=== PATIENT | female | born 1955 | race Caucasian/White ===

== ENCOUNTER 2018-03-03 12:21 | Emergency (ER) | payer SELFPAY ==
[2018-03-03 12:24] VITALS: BP 145/67; PULSE 87; RESP 20; TEMP 36.7; O2SAT 93
[2018-03-03 12:29] VITALS: RESP 20
--- NOTE | 2018-03-03 12:35 | DI.RAD_ITS ---
SYMPTOMS/DIAGNOSIS: COUGH, FEVER PA AND LATERAL CHEST: Comparison x-ray 02/19/09. The heart size and pulmonary vasculature are within normal limits. The lungs are clear and well expanded. No effusions or pneumothoraces are identified. There is an ovoid density projected over the anterolateral aspect of the right fifth rib. This can be seen on the x-ray of the shoulder from 02/19/09 and appears to be associated with the rib. Degenerative changes are seen in the spine. IMPRESSION: No acute pulmonary process.
[2018-03-03] MEDS: Albuterol HFA 8 GM 60 PUFF INH IH (13:41)
[2018-03-03] MEDS: Doxycycline Hyclate 100 MG CAP PO (13:41)
[2018-03-03] MEDS: Inhaler, Assist Device 1 EACH MC (13:42)
--- NOTE | 2018-03-03 13:42 | ED.GENADUL_ITS ---
Discharge Plan Disposition Patient Disposition: HOME Condition: Stable Discharge Details Chief Complaint: SOB Clinical Impression: Pneumonia Primary Care Provider: Eh Le ED Provider: Chris Flores Home Meds and New Rx's Prescriptions: New doxycycline hyclate 100 mg capsule 100 mg PO BID Qty: 14 RF: 0 benzonatate 200 mg capsule 200 mg PO TID PRN (Reason: cough) Qty: 30 RF: 0 Continued ibuprofen [Advil] 200 mg Tablet 400 mg PO QID PRNRF: 0 Mucinex DM 30-600 mg Tablet Extended Release 12 Hr 1 tab PO Q12H PRNRF: 0 Discharge Instructions Instructions: Pneumonia (ED) Additional Instructions: Return immediately to the emergency department new or worsening signs or symptoms, including high fevers, worsening shortness of breath, or any difficulty breathing. Otherwise take antibiotics until fully completed. You may use the provided inhaler 1-2 puffs every 4 hours as needed for shortness of breath. Follow-up with your primary care provider for reassessment if not improving over the next week. Referrals: Eh Le MD [Primary Care Provider] - 1 week (If not improving over the next week please follow-up with primary care provider for reassessment) Discharge Data Discharge Date/Time-TO BE ENTERED AT DEPARTURE: 03/03/18 13:48 Medical Decision Making Patient presenting the emergency department for chief complaint of worsening cold-like symptoms. Patient states that she had fever chills nasal congestion cough started 1 week ago and that seemed to improve after 3 days but over the last 24 hours she has had significant worsening of cough, change of sputum, and development of shortness of breath. Chest x-ray was ordered and was read by radiologist as negative, I question of possible right lower lobe infiltrate or opacity that is very slight or subtle. On physical exam patient does have diminished right lower lung field sounds and some mild crackles in the same area. Physical exam is otherwise unremarkable showing no tachycardia, afebrile, not hypotensive, mild low O2 sat but no tachypnea patient has no other significant comorbidities so I feel that outpatient therapy is appropriate and patient placed on doxycycline twice daily for 1 week, prescribed Tessalon Perles and albuterol inhaler to see if this helps her symptoms. Patient states clear understanding to return for new or worsening symptoms otherwise to follow-up with primary care for reassessment. After discussion of diagnosis and plan of care patient has no further needs, questions, or concerns and states clear understanding to return to the emergency department for any worsening symptoms. HPI General Mode of arrival: ambulatory . Date/Time Provider Initiated Documentation: 03/03/18 12:35 . Limitations to Documentation: no limitations . Information obtained by: patient and RN notes reviewed . History of Present Illness 62 year old F presents to the emergency department with the chief complaint of Worsening cold symptoms, Quality is described as other (Denies pain or discomfort), Patient started experiencing this week(s) (1) and it has been constant (With worsening over the past 24 hours). No relieving factors improve symptom(s), No exacerbating factors reported . Patient did receive the following treatments prior to arrival, other (Tylenol) Related Data Home Medications Medication Instructions Recorded Confirmed Mucinex DM 1 tab PO Q12H PRN 03/03/18 03/03/18 benzonatate 200 mg PO TID PRN #30 cap 03/03/18 doxycycline hyclate 100 mg PO BID #14 cap 03/03/18 ibuprofen [Advil] 400 mg PO QID PRN 03/03/18 03/03/18 Previous Rx's Medication Instructions Recorded benzonatate 200 mg PO TID PRN #30 cap 03/03/18 doxycycline hyclate 100 mg PO BID #14 cap 03/03/18 Allergies Allergy/AdvReac Type Severity Reaction Status Date / Time sulfamethoxazole Allergy Unknown rash Unverified 03/03/18 12:28 [From Bactrim] trimethoprim [From Bactrim] Allergy Unknown rash Unverified 03/03/18 12:28 General Stated Complaint: SOB AIYANA: 3 Review of Systems Constitutional Reports chills, Reports difficulty sleeping (Due to coughing), Reports fatigue, Reports fever(s) and Reports malaise ENT Reports as per HPI, Denies hoarseness, Reports nasal congestion, Denies sinus pressure and Denies sore throat Cardiovascular Denies chest pain, Reports dyspnea and Reports dyspnea on exertion Respiratory Reports as per HPI, Reports chest congestion, Denies hemoptysis, Reports excessive phlegm production, Denies pain with cough, Reports dyspnea, Reports dyspnea on exertion, Denies stridor and Reports wheezing Gastrointestinal Denies abdominal pain, Denies diarrhea, Denies nausea and Denies vomiting Musculoskeletal Denies joint swelling Integumentary/Breasts Denies rash Endocrine Reports fatigue Allergic/Immunologic Reports wheezing PFSH Social History Smoking/Tobacco Use Status: Former Tobacco Use Exam Const General: cooperative, comfortable and no acute distress Orientation: alert, awake and oriented x3 HENMT Head: normal to inspection Ears: hearing grossly normal bilaterally, external ears normal and TM's normal bilaterally General nose exam: external nose normal and nares normal Mouth: oral mucosae normal Throat: posterior oropharynx normal, tonsils normal and uvula midline Eyes General: appearance normal, both eyes and all related structures Conjunctivae: conjunctivae normal Sclera: sclerae normal Neck Neck: normal visual inspection, full ROM, no lymphadenopathy, meningismus present and no JVD Resp Effort & Inspection: normal respiratory effort, able to speak in complete sentences, no audible wheezes and not labored Auscultation: crackles on the right at the base and diminished lung sounds on the right in the lower lung sarabia Cardio Rate: regular rate Rhythm: regular rhythm Heart Sounds: S1 normal and S2 normal Skin General skin exam: dry skin Neuro General: alert, awake, oriented x3 and gait normal Course Vital Signs Temperature 36.7 C 03/03/18 12:24 Pulse 87 03/03/18 12:24 Respiratory Rate 20 03/03/18 12:24 Blood Pressure 145/67 H 03/03/18 12:24 Pulse Oximetry 93 L 03/03/18 12:24 Temperature 36.7 C 03/03/18 12:24 Temperature Source Temporal Artery Scan 03/03/18 12:24 Pulse 87 03/03/18 12:24 Respiratory Rate 20 03/03/18 12:29 Respiratory Effort 03/03/18 12:29 Respiratory Depth Normal 03/03/18 12:29 Respiratory Pattern Normal 03/03/18 12:29 Blood Pressure 145/67 H 03/03/18 12:24 Blood Pressure Position Sitting 03/03/18 12:24 Pulse Oximetry 93 L 03/03/18 12:24 Oxygen Delivery Method Room Air 03/03/18 12:24 Oxygen Flow Rate 0 03/03/18 12:24 Pain Level 0 03/03/18 12:24
--- NOTE | 2018-03-03 13:43 | NUR.NOTE ---
patient medicated per provider order Nursing Note:
[2018-03-03 13:45] VITALS: TEMP 36.4
== END 2018-03-03 13:48 | disposition home or self-care (01) ==
PROVIDERS: Emergency Provider Nurse Practitioner Family; PCP Family Medicine
DX: J18.9 Pneumonia, unspecified organism (principal); Z87.891 Personal history of nicotine dependence
CPT/HCPCS: 99283; 71046

== ENCOUNTER 2019-08-08 21:10 | Outpatient (REF) | payer MEDICAID, SELFPAY ==
[2019-08-08 19:36] LABS: Abs Immature Grans 0.01 k/cumm (0.0-0.09); Absolute Basophil Count 0.05 k/cumm (0.0-0.2); Absolute Eosinophil Count 0.09 k/cumm (0.0-0.7); Absolute Lymphocyte Count 1.28 k/cumm (1.2-3.4); Absolute Monocyte Count 0.39 k/cumm (0.11-0.7); Absolute Neutrophil Count 3.61 k/cumm (1.2-6.7); Basophils % 0.9; Eosinophils % 1.7; HCT 40.4 % (36.0-46.0); HGB 13.6 g/dL (12.0-15.5); Immature Grans % 0.2 %; Lymphocytes % 23.6; Mean Corp. HGB Concentration 33.7 g/dL (32.0-36.0); Mean Corpuscular Hemoglobin 31.3 pg (27.0-33.0); Mean Corpuscular Volume 92.9 fL (80-95); Mean Platelet Volume 11.3 fL (8.0-11.0); Monocytes % 7.2; Neutrophils % 66.4; Platelet Count 196 x1000/uL (130-400); RBC 4.35 m/cumm (4.00-5.20); RBC Distribution Width 12.6 % (11.7-14.6); White Blood Cell Count 5.43 k/cumm (4.4-10.8)
[2019-08-08 19:56] LABS: ALT 40 U/L (14-59); AST 25 U/L (15-37); Albumin 4.3 g/dL (3.4-5.0); Alkaline Phosphatase 68 U/L (46-116); Anion Gap 9.5 mmol/L (3-11); BUN 13 mg/dL (7-18); Bilirubin, Total 0.5 mg/dL (0.2-1.0); CO2 26.5 mmol/L (21.0-32.0); CREATININE 0.74 mg/dL (0.55-1.02); Calcium 9.2 mg/dL (8.5-10.1); Calculated LDL 156 mg/dL (<100); Chloride 104 mmol/L (98-107); Cholesterol 225 mg/dL (<200); Glucose 96 mg/dL (74-106); HDL Cholesterol 41 mg/dL (40-60); Potassium 3.9 mmol/L (3.5-5.1); Sodium 140 mmol/L (136-145); Total Protein 7.3 g/dL (6.4-8.2); Triglyceride 142 mg/dL (<150)
[2019-08-09 04:17] LABS: Vitamin D 25 Total 21.3 ng/ml (30-100)
[2019-08-10 09:49] LABS: CA 19-9 4 U/mL (<35)
== END 2019-08-08 21:30 ==
LOC: NCHCN 21:10
PROVIDERS: PCP Physician Assistant; Visit Provider Physician Assistant
DX: Z80.1 Family history of malignant neoplasm of trachea, bronchus and lung (principal); Z80.0 Family history of malignant neoplasm of digestive organs; E78.5 Hyperlipidemia, unspecified; E55.9 Vitamin D deficiency, unspecified
CPT/HCPCS: 80053; 80061; 82306; 84443; 85025; 86301

== ENCOUNTER 2019-10-18 08:08 | Day surgery (SDC) | payer MEDICAID, SELFPAY ==
[2019-10-18 08:15] VITALS: BP 141/78; PULSE 72; RESP 18; TEMP 36.5; O2SAT 95
[2019-10-18] MEDS: Lactated Ringers 1,000 ML 80 ML IV (08:38)
--- NOTE | 2019-10-18 09:15 | W.COLOREPORT ---
Date of service: 10/18/19 Time of Service: 09:15 Colonoscopy Report Procedure Description: After informed consent was obtained the patient was taken to the procedure room and placed in a left decubitous position. Monitors were applied and a time out was done. The patients name, date of , procedure, allergies to medications and metal in their body was reviewed. The patient was then sedated. Once sedated and comfortable a rectal exam was done. External exam was normal. Internal exam revealed a normal sphincter tone and no palpable masses. The scope was then introduced and retroflexed. internal hemorrhoids were identified. Her colon is extremely tortuous and redundant. I am able to get to the right/hepatic flexure but cannot advance the scope beyond this. The muscle seen is pink and healthy. There are no polyps. I worked on trying to advance the scope for about 25 mins. She has had a CANDY/BSO. I do not palpate any hernias. The prep was good. The scope was then slowly retracted over 15 minutes back into the rectum. The scope was removed and the patient was woken up and taken back to Same day surgery in stable condition. She will got for a CE for completeness, juice given her extensive family hx. The patient tolerated the procedure well and there were no immediate complications. Follow up: The patient should follow up in 5 years unless they develop changes in bowel habits or other new gastrointestinal complaints. pt has extensive family hx of cancer- CRC/liver/pancrease and should go for genetic testing. no family hx of breast/ovarian/uterine.
--- NOTE | 2019-10-18 09:15 | W.PM.DSUDISC ---
Discharge Plan Disposition Patient Disposition: HOME Condition: Good Discharge Details Reason For Visit: colon scope Attending Provider: Chica Yao Primary Care Provider: Kellee Gu Home Meds and New Rx's Prescriptions: No Action polyethylene glycol 3350 17 gram/dose powder 238 g PO ONCE Qty: 238 RF: 0 bisacodyl [Dulcolax (bisacodyl)] 5 mg tablet,delayed release (DR/EC) 5 mg PO ONCE Qty: 4 RF: 0 cholecalciferol (vitamin D3) 50 mcg (2,000 unit) capsule 50 mcg PO DAILY RF: 0 ibuprofen [Advil] 200 mg Tablet 400 mg PO QID PRNRF: 0 multivitamin Tablet 1 tab PO DAILY RF: 0 Discharge Instructions Additional Instructions: Findings:torteous colon. Diverticula will need BE in 2 wks time Follow up: 5 yrs Please call if you develop: fevers >101.5 Nausea or Vomiting Abdominal pain that is not transient DAY SURGERY UNIT POST COLONOSCOPY INSTRUCTIONS 1. Because there will be medication in your system for the next 24 hours, you may feel a little sleepy. Your coordination will be affected. Therefore: a. Do not drive or operate dangerous equipment for 24 hours. b. Do not drink alcohol beverages for 24 hours (not even beer). c. Plan to go home and rest for the day. 2. Generally there are no restrictions on your activity after a day or so has gone by, but you may feel a bit fatigued for a few days. 3 After you arrive home you may have a light meal and return to a normal diet as you can tolerate it without feeling sick to your stomach. 4. After surgery, you may feel pain or discomfort. This should be only transient, but if it persists please contact your doctor. 5. If there are any questions regarding the findings of your procedure, please feel free to contact your doctor. 6. If you are unable to contact your doctor with a problem, contact the hospital at [phone]. 7. Continue all your regular medications unless directed otherwise. I understand the above instructions and have no questions. Signature of Patient or Responsible Adult Escort Date/Time Name of Responsible Adult Escort Signature of Nurse Date/Time Activity:: no strenuous activity or lifting over 20#'s x 24 hrs Diet:: small light meals x 24 hrs Discharge Orders Discharge Orders: Discharge Order (Routine); Ordered 10/18/19 Ordered By: Chica Yao DS: Diagnosis Discharge Diagnosis (1) Family history of malignant neoplasm of colon in first degree relative diagnosed when younger than 60 years of age: Status: Acute (2) Diverticula of colon: Status: Acute
[2019-10-18 10:45] VITALS: BP 117/60; PULSE 63; RESP 16; TEMP 36.4; O2SAT 98
== END 2019-10-18 11:45 | disposition home or self-care (01) ==
PROVIDERS: PCP Physician Assistant; Visit Provider Surgery
PROC: 0DJD8ZZ Inspection of Lower Intestinal Tract, Via Natural or Artificial Opening Endoscopic (ICD-10-PCS; CPT 45378; principal; 2019-10-18 09:00)
DX: Z12.11 Encounter for screening for malignant neoplasm of colon (principal); Z80.0 Family history of malignant neoplasm of digestive organs; K57.30 Diverticulosis of large intestine without perforation or abscess without bleeding
CPT/HCPCS: 45378

== ENCOUNTER 2019-10-23 01:12 | Outpatient (CLI) | payer MEDICAID, SELFPAY ==
--- NOTE | 2019-10-23 | DI.RAD_ITS ---
EXAM: XR CHEST 2V PA LATERAL CLINICAL HISTORY: FORMER SMOKER, Z87.891,SOB, R06.02 TECHNIQUE: 2D digital imaging was performed. COMPARISON: No exams were available for comparison FINDINGS: MEDIASTINUM: Normal. HEART: Normal. PULMONARY VASCULATURE: Normal. LUNGS: Mild upper lobe emphysematous changes. No visible mass or infiltrate. PLEURAL SPACE: No pleural effusion or pneumothorax. BONE:Normal. OTHER FINDINGS:Right upper quadrant surgical clips. IMPRESSION: No acute pulmonary findings. DATA REPOSITORY: RADIATION DOSE DELIVERED:
== END 2019-10-23 01:32 ==
PROVIDERS: PCP Physician Assistant; Visit Provider Physician Assistant
DX: Z87.891 Personal history of nicotine dependence (principal); R06.02 Shortness of breath
CPT/HCPCS: 71046

== ENCOUNTER 2019-10-29 00:51 | Outpatient (CLI) | payer MEDICAID, SELFPAY ==
--- NOTE | 2019-10-29 | DI.MAMMO_ITS ---
EXAM: MG MAMMO SCREENING CLINICAL HISTORY: SCREENING,Z12.31 TECHNIQUE: Mammograms were interpreted according to the usual protocol including computer analysis w [employer] CAD system, tomosynthesis and C-view imaging. COMPARISON: FINDINGS: Breasts are heterogeneously dense. Microcalcification is identified in either breast. The current e xamination is compared with previous examination September 2013 and there has been no gross interval darwin nge appearance comparison with prior study. IMPRESSION: No specific evidence of malignancy at this time. Routine screening examinations are suggested at yea rly intervals in this age group according to the ACS ACR guidelines. BI-RADS Category 1 - Negative Breast Density - Category C - Heterogeneously dense
== END 2019-10-29 01:11 ==
PROVIDERS: PCP Physician Assistant; Visit Provider Physician Assistant
DX: Z12.31 Encounter for screening mammogram for malignant neoplasm of breast (principal); R92.2 Inconclusive mammogram; R92.0 Mammographic microcalcification found on diagnostic imaging of breast
CPT/HCPCS: 77063; 77067

== ENCOUNTER 2019-12-10 00:54 | Outpatient (CLI) | payer MEDICAID, SELFPAY ==
--- NOTE | 2019-12-10 07:02 | DI.RAD_ITS ---
EXAM: RF BARIUM ENEMA CLINICAL HISTORY: INCOMPLETE COLONOSCOPY,DIVERTICULA,FAMILY H/O COLON CA,K57.30 TECHNIQUE: COMPARISON: No exams were available for comparison FINDINGS: Barium enema was performed according to the usual protocol. Preliminary radiograph of the abdomen is unremarkable. There is moderate colonic diverticulosis. Appendix fills and appears normal. The te rminal ileum is unremarkable in appearance. There is no focal intraluminal filling defect identified . Colonic mucosa appears intact throughout. No evidence of stricture. IMPRESSION: Negative barium enema except for moderate colonic diverticulosis. RADIATION DOSE DELIVERED: Total DLP
[2019-12-10] MEDS: Barium Sulfate 60% W/V 355 ML BTL PO (10:01)
== END 2019-12-10 01:14 ==
PROVIDERS: PCP Physician Assistant; Visit Provider Surgery
DX: Z80.0 Family history of malignant neoplasm of digestive organs (principal); K57.30 Diverticulosis of large intestine without perforation or abscess without bleeding
CPT/HCPCS: 74270

== ENCOUNTER 2020-11-18 04:34 | Outpatient (CLI) | payer MEDICAID, SELFPAY ==
[2020-11-18] MEDS: Inhaler, Assist Device 1 EACH MC (17:02)
[2020-11-18] MEDS: Albuterol HFA 18 GM 200 PUFF INH IH (17:02)
--- NOTE | 2020-11-19 15:02 | W.PFT ---
Date of service: 11/18/20 Time of Service: 15:04 Pulmonary Function Test Result Requesting Provider Shirley Gu Indications: Shortness of breath Interpretation Spirometry: There is moderate airflow obstruction. There is no significant bronchodilator change. Airflow limitation is suggested by the flow volume loop and volume-time curves. Lung Volumes: There is evidence of hyperinflation and air trapping. Diffusion Capacity: The diffusion is not reduced. Airway Pressure: Airways resistance is normal. Impression Moderate airflow limitation with hyperinflation and air trapping. In the correct clinical context this could represent COPD with chronic bronchitis given the patient's smoking history. Clinical Correlation therefore is recommended.
== END 2020-11-18 04:35 | disposition home or self-care (01) ==
LOC: RT 04:34
PROVIDERS: PCP Physician Assistant; Visit Provider Physician Assistant
DX: R06.02 Shortness of breath (principal); R94.2 Abnormal results of pulmonary function studies
CPT/HCPCS: 94060; 94726; 94729

== ENCOUNTER 2020-12-31 13:12 | Outpatient (REF) | payer MEDICAID, SELFPAY ==
[2020-12-31 21:50] LABS: Hemoglobin A1C 5.5 % (<5.7)
[2020-12-31 21:52] LABS: TSH (W/Ref FT4) 2.02 uIU/mL (0.36-3.74)
[2021-01-01 17:10] LABS: CRP, High Sensitivity 3.38 mg/L (See Note)
== END 2020-12-31 13:13 | disposition home or self-care (01) ==
LOC: NCHCN 13:12
PROVIDERS: PCP Physician Assistant; Visit Provider Physician Assistant
DX: R73.9 Hyperglycemia, unspecified (principal); R79.82 Elevated C-reactive protein (CRP); R94.6 Abnormal results of thyroid function studies
CPT/HCPCS: 86141; 83036; 84443

== ENCOUNTER → 2021-11-05 03:16 | Outpatient (CLI) | payer MEDICAID, SELFPAY ==
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
--- NOTE | 2021-11-05 15:00 | DI.MAMMO_ITS ---
Exam(s) MAMMO SCREENING EXAM: MAMMO SCREENING CLINICAL HISTORY: SCREENING, Z12.31 TECHNIQUE: Mammograms were interpreted according to the usual protocol including computer analysis w [employer] CAD system, tomosynthesis and C-view imaging. COMPARISON: 2013 and 2019 FINDINGS: The breasts are composed of scattered fibroglandular densities, Breast Density category B. No suspicious masses or suspicious microcalcifications are seen. No skin thickening or abnormal axillary lymph nodes are seen. There has been no significant change from prior exams. IMPRESSION: BI-RADS Category 1, Negative mammogram Yearly screening mammography is recommended. Breast Density - Category B, scattered fibroglandular densities. A negative radiographic report should not delay biopsy if a dominant or clinically suspicious mass is present. Up to ten percent of cancers are not identified on mammography. A negative report may reinforce clinical impression. Adenosis and dense breasts may obscure an underlying neoplasm. False positive reports average 6 to 10%. Patient will receive a letter notifying them of these results.
== END ==
PROVIDERS: PCP Physician Assistant; Visit Provider Physician Assistant
DX: Z13.820 Encounter for screening for osteoporosis (principal); Z78.0 Asymptomatic menopausal state; Z12.31 Encounter for screening mammogram for malignant neoplasm of breast
CPT/HCPCS: 77063; 77067; 77080

== ENCOUNTER 2023-02-04 15:57 | Outpatient (REF) | payer MEDICARE, SELFPAY ==
[2023-02-04 18:53] LABS: ALT 35 U/L (14-59); AST 11 U/L (15-37); Albumin 3.9 g/dL (3.4-5.0); Alkaline Phosphatase 65 U/L (46-116); Anion Gap 9.2 mmol/L (3-11); BUN 19 mg/dL (7-18); Bilirubin, Total 0.3 mg/dL (0.2-1.0); CO2 25.8 mmol/L (21.0-32.0); CREATININE 0.8 mg/dL (0.55-1.02); Calcium 9.1 mg/dL (8.5-10.1); Chloride 104 mmol/L (98-107); Estimated GFR 81.21 (mL/min/1.73m2); Glucose 108 mg/dL (74-106); LDL CHOLESTEROL 120 mg/dL (<100); Potassium 4.1 mmol/L (3.5-5.1); Sodium 139 mmol/L (136-145); Total Protein 7.7 g/dL (6.4-8.2)
[2023-02-04 19:40] LABS: Hemoglobin A1C 5.2 % (<5.7)
== END 2023-02-04 15:58 | disposition home or self-care (01) ==
LOC: NCHCN 15:57
PROVIDERS: PCP Physician Assistant; Visit Provider Physician Assistant
DX: E78.5 Hyperlipidemia, unspecified (principal); R79.89 Other specified abnormal findings of blood chemistry
CPT/HCPCS: 80053; 83721; 83036

== ENCOUNTER → 2023-04-26 03:38 | Outpatient (CLI) | payer MEDICARE, SELFPAY ==
--- NOTE | 2023-04-26 | DI.MAMMO_ITS ---
Exam(s) MAMMO SCREENING EXAM: MAMMO SCREENING CLINICAL HISTORY: SCREENING MAMMO FOR BREAST CANCER Z12.31. TECHNIQUE: Bilateral full field digital CC and MLO mammographic images were obtained with 3D tomosyn thesis and utilizing computer aided detection (CAD). COMPARISON: Prior mammograms were reviewed. FINDINGS: There has been no significant change in the appearance and distribution of the fibroglandular tissue. There are no new spiculated masses nor malignant appearing microcalcification groups. There is no significant architectural distortion nor skin thickening-retraction. IMPRESSION: No radiographic evidence of malignancy. BI-RADS Category 1 - Negative Breast Density - Category B - Scattered areas of fibroglandular density Breast density Category C or D implies that the patient has dense breast tissue. Dense breast tissue can make it harder to find cancer on a mammogram. Dense breast tissue is also associated with an incr eased risk of breast cancer. This information about the result of the mammogram report was provided to the patient to raise their awareness. Use this report when you speak with the patient about their risks for breast cancer, which includes their family history. At that time, you may recommend additional screening tests (Ultrasoun d or MRI) as these tests may add significant information. A negative radiographic report should not delay biopsy if a dominant or clinically suspicious mass is present. Up to ten percent of cancers are not identified on mammography. A negative report may reinforce clinical impression. Adenosis and dense breasts may obscure an underlying neoplasm. False positive reports average 6 to 10%. Patient will receive a letter notifying them of these results.
== END ==
PROVIDERS: PCP Physician Assistant; Visit Provider Physician Assistant
DX: Z12.31 Encounter for screening mammogram for malignant neoplasm of breast (principal)
CPT/HCPCS: 77063; 77067

== ENCOUNTER → 2023-08-26 14:49 | Outpatient (CLI) | payer MEDICARE, SELFPAY ==
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
== END ==
PROVIDERS: PCP Physician Assistant; Visit Provider Physician Assistant
DX: S29.9XXA Unspecified injury of thorax, initial encounter (principal)
CPT/HCPCS: 71046; 71100

== ENCOUNTER 2024-02-09 09:19 | Outpatient (REF) | payer MEDICARE, SELFPAY ==
[2024-02-09 19:31] LABS: ALT 19 U/L (14-59); AST 14 U/L (15-37); Albumin 3.8 g/dL (3.4-5.0); Alkaline Phosphatase 63 U/L (46-116); Anion Gap 8.1 mmol/L (3-11); BUN 17 mg/dL (7-18); Bilirubin, Total 0.41 mg/dL (0.2-1.0); CO2 27.9 mmol/L (21.0-32.0); CREATININE 0.7 mg/dL (0.55-1.02); Calcium 9.3 mg/dL (8.5-10.1); Calculated LDL 181 mg/dL (<100); Chloride 107 mmol/L (98-107); Cholesterol 260 mg/dL (<200); Estimated GFR 94.73 (mL/min/1.73m2); Glucose 102 mg/dL (74-106); HDL Cholesterol 59 mg/dL (40-60); Potassium 4.1 mmol/L (3.5-5.1); Sodium 143 mmol/L (136-145); Total Protein 7.4 g/dL (6.4-8.2); Triglyceride 100 mg/dL (<150)
[2024-02-13 11:48] LABS: Hepatitis C Ab w Rflx HCV PCR Negative (Negative)
== END 2024-02-09 09:20 | disposition home or self-care (01) ==
LOC: NCHCN 09:19
PROVIDERS: PCP Physician Assistant; Visit Provider Physician Assistant
DX: E78.5 Hyperlipidemia, unspecified (principal)
CPT/HCPCS: 80053; 80061; 86803

== ENCOUNTER 2024-04-26 10:45 | Outpatient (REF) | payer MEDICARE, SELFPAY ==
[2024-04-26 20:03] LABS: ALT 35 U/L (14-59); AST 17 U/L (15-37); Albumin 4.1 g/dL (3.4-5.0); Alkaline Phosphatase 66 U/L (46-116); Anion Gap 7.9 mmol/L (3-11); BUN 14 mg/dL (7-18); Bilirubin, Total 0.5 mg/dL (0.2-1.0); CO2 28.1 mmol/L (21.0-32.0); CREATININE 0.7 mg/dL (0.55-1.02); Calcium 9.5 mg/dL (8.5-10.1); Chloride 105 mmol/L (98-107); Estimated GFR 94.15 (mL/min/1.73m2); Glucose 108 mg/dL (74-106); Potassium 4.6 mmol/L (3.5-5.1); Sodium 141 mmol/L (136-145); Total Protein 7.6 g/dL (6.4-8.2)
[2024-04-26 20:51] LABS: Calculated LDL 103 mg/dL (<100); Cholesterol 180 mg/dL (<200); HDL Cholesterol 62 mg/dL (>or=50); Triglyceride 76 mg/dL (<150)
== END 2024-04-26 10:46 | disposition home or self-care (01) ==
LOC: NCHCN 10:45
PROVIDERS: PCP Physician Assistant; Visit Provider Physician Assistant
DX: E78.5 Hyperlipidemia, unspecified (principal)
CPT/HCPCS: 80053; 80061

== ENCOUNTER 2024-05-09 01:15 | Outpatient (CLI) | payer MEDICARE, SELFPAY ==
--- NOTE | 2024-05-09 | DI.RAD_ITS ---
Exam(s) XR CHEST 2V PA LATERAL EXAM: XR CHEST 2V PA LATERAL CLINICAL HISTORY: COPD,J44.9 TECHNIQUE: 2D digital imaging was performed. Two views. COMPARISON: No exams were available for comparison FINDINGS: HEART: Normal size. Aorta: Not dilated. PULMONARY VASCULATURE: Normal. MEDIASTINUM: Unremarkable. LUNGS: Mildly hyperinflated but clear. Upper lobe emphysematous changes. PLEURAL SPACE: No pleural effusion or pneumothorax. BONE:Unremarkable for age. SOFT TISSUES: Right upper quadrant surgical clips. IMPRESSION: No acute abnormality. DATA REPOSITORY: RADIATION DOSE DELIVERED:
== END 2024-05-09 01:35 ==
LOC: DI 01:16
PROVIDERS: PCP Physician Assistant; Visit Provider Physician Assistant
DX: J44.9 Chronic obstructive pulmonary disease, unspecified (principal)
CPT/HCPCS: 71046

== ENCOUNTER 2024-05-11 03:20 | Outpatient (CLI) | payer MEDICARE, SELFPAY ==
[2024-05-11] MEDS: Inhaler, Assist Device 1 EACH MC (09:37)
[2024-05-11] MEDS: Levalbuterol HFA 15 GM INH 4 PUFF IH (09:38)
--- NOTE | 2024-05-15 16:07 | W.PFT ---
Date of service: 05/11/24 Time of Service: 08:05 Pulmonary Function Test Result Indications: COPD Interpretation Spirometry: There is mild airflow limitation. There is a significant bronchodilator response Lung Volumes: There is hyperinflation and air trapping Diffusion Capacity: Normal diffusion Airway Pressure: Increased airways resistance Impression Mild airflow limitation with air trapping and a normal diffusion Clinical Correlation therefore is recommended.
== END 2024-05-11 03:21 | disposition home or self-care (01) ==
LOC: RT 03:20
PROVIDERS: PCP Physician Assistant; Visit Provider Student in an Organized Health Care Education/Training Program
DX: J44.9 Chronic obstructive pulmonary disease, unspecified (principal)
CPT/HCPCS: 94060; 94726; 94729

== ENCOUNTER 2025-02-08 14:08 | Outpatient (REF) | payer MEDICARE, SELFPAY ==
[2025-02-08 19:00] LABS: ALT 19 U/L (10-49); AST 19 U/L (<34); Albumin 4.4 g/dL (3.2-5.0); Alkaline Phosphatase 59 U/L (46-116); Anion Gap 7.5 mmol/L (3-11); BUN 13 mg/dL (9-23); Bilirubin, Total 0.6 mg/dL (0.2-1.2); CO2 27.5 mmol/L (20.0-31.0); Calcium 9.0 mg/dL (8.3-10.6); Chloride 105 mmol/L (98-107); Cholesterol 173 mg/dL (<200); Glucose 86 mg/dL (74-106); HDL Cholesterol 56 mg/dL (>or=50); Potassium 4.0 mmol/L (3.5-5.1); Sodium 140 mmol/L (136-145); Total Protein 7.1 g/dL (5.7-8.2)
== END 2025-02-08 14:09 | disposition home or self-care (01) ==
LOC: NCHCN 14:08
PROVIDERS: PCP Physician Assistant; Visit Provider Physician Assistant
DX: E78.5 Hyperlipidemia, unspecified (principal)
CPT/HCPCS: 80053; 80061